=== PATIENT | male | born 1975 | race Caucasian/White ===

== ENCOUNTER 2020-11-30 02:02 | Emergency (ER) | payer SELFPAY ==
--- NOTE | 2020-11-30 02:12 | XRR_ITS ---
PROCEDURE INFORMATION: Exam: XR Abdomen Exam date and time: 11/30/2020 2:12 AM Age: 45 years old Clinical indication: Abdominal pain; Generalized; Patient HX: Abd pain with constipation. TECHNIQUE: Imaging protocol: XR of the abdomen. Views: Frontal supine view of the abdomen. 1 View. COMPARISON: CT Abdomen/Pelvis Renal [id number] 10/12/2015 1:57 PM FINDINGS: Gastrointestinal tract: There is large stool in the ascending colon and moderate stool in the descending colon. Small bowel gas pattern is unremarkable. Bones/joints: Unremarkable. XR/XR KUB [id number] IMPRESSION: Large stool in the ascending colon may be a fecal impaction.
[2020-11-30 02:13] VITALS: BP 172/102; PULSE 90; RESP 16; TEMP 36.7; O2SAT 98; BMI 27.8
--- NOTE | 2020-11-30 02:30 | ED_ITS ---
HPI - Abdominal Pain General: Chief Complaint: Abdominal Pain Stated Complaint: trouble having BM Time Seen by Provider: 11/30/20 02:12 History of Present Illness: HPI narrative: Patient is a 45-year-old male comes to the ED with constipation. Patient says that he has been having problems with bowel movements for over a year. He states that he does not have a primary care physician has not been seen by a PCP in over several years. He had a bowel movement today that was very thin and small. He has struggled with constipation for over a year and frequently has hard stools. He reports sometimes having some blood when he wipes. Patient admits to having opioid addiction and abuse is currently on methadone. He also reports some pain and difficulty urinating for over the past year as well. Denies any current urine retention. He has not taken any stool softeners or MiraLAX to help with bowel movements. Associated Symptoms: Reports constipation; Denies chills, diarrhea, dysuria, fever(s), hematochezia, hematuria, nausea and vomiting Review of Systems Const: Denies: fever(s), chills or fatigue Eyes: Denies: change in vision or eye discomfort ENMT: Denies: throat pain, odynophagia, nasal discharge or nasal congestion Card: Denies: chest pain, palpitations, edema, swelling of feet/ankles, dysp demarcus on exertion or orthopnea Resp: Denies: dyspnea, productive cough or non-productive cough GI: Reports: constipation; Denies: abdominal pain, nausea, vomiting, diarrhea or hematochezia : Reports: difficulty urinating and difficulty starting urination; Denies: flank pain, dysuria or hematuria Musc: Denies: neck pain, back pain or extremity swelling Skin/Breast: Denies: rash or new lesions Neuro: Denies: headache(s), numbness in extremities or weakness in extremities PFSH ED PFSH: Family History Father Hypertension Denies family history of Diabetes Clotting disorder Dementia Social History Smoking and tobacco status: current some day smoker cigarettes and smokeless tobacco Alcohol intake: never Physical Exam Const: COMMON NORMALS: no acute distress, patient oriented x3 and alert HENMT: COMMON NORMALS: normocephalic HEAD & SCALP: normocephalic MOUTH: Normal oral and palatal mucosa present THROAT: posterior oropharynx normal and uvula midline Eye: COMMON NORMALS: Equal, round and reactive pupils present PUPIL: Yes Equal, round and reactive pupils present Neck/C-Spine: COMMON NORMALS: supple GENERAL: Yes normal visual inspection Resp: COMMON NORMALS: normal respiratory effort, No retractions, No use of accessory muscles and clear to auscultation bilaterally AUSCULTATION: clear to auscultation bilaterally Cardio: COMMON NORMALS: regular rate, regular rhythm, S1 normal heart sound present, S2 normal heart sound present, No gallops present (Cardio), No clicks present (Cardio), No murmurs present (Cardio) and Peripheral pulses 2+ throughout RATE: regular rate RHYTHM: regular rhythm HEART SOUNDS: S1 normal heart sound present and S2 normal heart sound present PERIPHERAL PULSES: Peripheral pulses 2+ throughout GI: COMMON NORMALS: Normal to inspection, nondistended, normoactive bowel sounds present, Soft to palpation, non-tender and no masses PALPATION: Yes Soft to palpation : COMMON NORMALS: Yes no CVA tenderness BLADDER/KIDNEY EXAM: Yes no CVA tenderness Back/Pelvis: COMMON NORMALS: no CVA tenderness Extremity: COMMON NORMALS: normal to inspection Neuro: COMMON NORMALS: patient oriented x3 SENSORIUM/ORIENTATION: Yes alert Skin: GENERAL SKIN EXAM: dry skin Course Vital Signs: Vital signs: Vital Signs Temperature 98.0 F 11/30/20 02:13 Pulse Rate 90 11/30/20 02:13 Respiratory Rate 16 11/30/20 02:13 Blood Pressure 172/102 11/30/20 02:13 Pulse Oximetry 98 11/30/20 02:13 MDM - Abdominal Pain MDM Narrative: Medical decision making narrative: Patient is a 45-year-old male comes to the ED with constipation. Patient is a chronic opioid user. He also complains some difficulty urinating and trouble starting urine stream but denies any urinary retention. He has had problems with constipation for several years now. Patient does not have a primary care physician and has not seen a PCP several years. Vitals are stable and exam is benign. UA was unremarkable. KUB shows stool throughout the colon, suggestive of constipation likely induced by his chronic opioid use. I placed order with case management for patient to be referred to a PCP to get established. Return to ED precautions given. Patient was discharged home with MiraLAX and docusate prescriptions. Patient was told clinical case manager will contact him in the next several days to set up an appoint with PCP. Patient understood agree with plan. Lab Data: Attestation: I reviewed the patient's lab results. Labs: Lab Results 11/30/20 Range/Units 02:55 Urine Color Yellow (Yellow) Urine Appearance Clear (CLEAR) Urine pH 7 (5-7) Ur Specific Gravit y 1.010 (1.005-1.030) Urine Protein Neg (Negative) Urine Glucose (UA) Norm (Normal) Urine Ketones Negative (Negative) Urine Blood Neg (Negative) Urine Nitrate Negative (Negative) Urine Bilirubin Neg (Negative) Urine Urobilinogen 4 H (Negative) mg/dL Ur Leukocyte Agnes ase Negative (Negative) Urine RBC 0-4 H (0-2) /hpf Urine WBC 0-4 H (0-5) /hpf Ur Squamous Epith Cells 0-4 H (0-5) /hpf Amorphous Sediment Not Reportable Urine Bacteria Trace (NONE) /hpf Imaging Data ^: KUB: Attestation: I personally reviewed and interpreted this imaging study as follows: My impression: KUB shows a lot of stool all throughout the large intestine. Discharge Plan Discharge Patient Disposition: Home Clinical Impression: Constipation Qualifiers: Constipation type: drug induced constipation Qualified Code(s): K59.03 - Drug induced constipation Condition: Stable Prescriptions: New Miralax 17 gram/dose powder 17 g PO DAILY PRN (Reason: constipation) Qty: 238 RF: 0 Dulcolax Stool Softener (dss) 100 mg capsule 100 mg PO BID PRN (Reason: constipation) Qty: 30 RF: 0 No Action methadone 40 mg tablet,soluble 10 mg PO DAILY RF: 0 Discharge Orders: Discharge ED (Routine); Ordered 11/30/20 Ordered By: Mic Billingsley Discharge Diet: Regular Discharge Activity: Resume usual activity Patient Instructions: Constipation (ED), High Fiber Diet (ED) Activity Restrictions/Additional Instructions: Follow-up with medical provider as directed. Case management will contact you in the next several days to set up an appointment with a primary care physician. Take medications as prescribed. Drink plenty of fluids and stay hydrated and eat a high-fiber diet with fruits and vegetables. Return to the ER or your medical provider if condition worsens. Please read and understand discharge instructions. Thank you for choosing [facility] for your healthcare needs today. Please realize this is an emergency room and that we are providing you with a medical screening exam and this may not be complete and all inclusive of all the testing and or work up that you may need to determine your ailment or severity of your illness. It is very important that you follow up as instructed or that you return to the Emergency Department should you have concerns or if your condition changes or worsens in any way. Coding Level of Care Code ED Mohs Surgeon/General Dermatologist for Eduar Moreno Exam Comprehensive
[2020-11-30 03:08] LABS: Add Urine Culture? No; Bacteria Urine TRACE /hpf; Bilirubin Urine Neg (Negative); Blood Urine Neg (Negative); Glucose Urine UA Norm (Normal); Ketones Urine Negative (Negative); Leukocyte Esterase Urine Negative (Negative); Nitrate Urine Negative (Negative); Protein Urine Neg (Negative); RBC Urine 0-4 /hpf (0-2); Squamous Epithelial Cell Urine 0-4 /hpf (0-5); Urine Appearance Clear (CLEAR); Urine Color Yellow (Yellow); Urobilinogen Urine 4 mg/dL (Negative); WBC Urine 0-4 /hpf (0-5); pH Urine 7 (5-7)
[2020-11-30 03:28] VITALS: BP 148/103; PULSE 90; RESP 16; O2SAT 97
--- NOTE | 2020-12-08 13:48 | DCPLANNER ---
audio production manager had message to speak with patient about getting established with a primary care physician. audio production manager called phone number [phone], unable to speak with patient at this time.
== END 2020-11-30 03:29 | disposition home or self-care (01) ==
PROVIDERS: Emergency Provider Physician Assistant
DX: K59.03 Drug induced constipation (principal); F17.210 Nicotine dependence, cigarettes, uncomplicated; F17.220 Nicotine dependence, chewing tobacco, uncomplicated
CPT/HCPCS: 74018; 81001; 99282

== ENCOUNTER 2021-01-25 06:21 | Emergency (ER) | payer MEDICAID, SELFPAY ==
[2021-01-25 06:24] VITALS: BP 158/102; PULSE 93; RESP 18; TEMP 37.7; O2SAT 98; BMI 27.8
--- NOTE | 2021-01-25 06:34 | XRR_ITS ---
PROCEDURE INFORMATION: Exam: XR Right Ankle Exam date and time: 01/25/2021 6:34 AM Age: 45 years old Clinical indication: Other: Pain and feeling like asleep; Patient HX: Pain to entire foot/ankle x 1 week, feels like it is asleep; Additional info: Parathesia TECHNIQUE: Imaging protocol: XR Right ankle. Views: 3 or more views. COMPARISON: No relevant prior studies available. FINDINGS: Bones/joints: Normal. No fracture. Benign juxtacortical rounded calcification adjacent to the distal tibia anteriorly. Soft tissues: Normal. XR/XR ankle RT min 3V* [id number] IMPRESSION: No acute findings. Radiation Dose CTDIVOL = (mGy): DLP = (mGy-cm)
--- NOTE | 2021-01-25 06:34 | XRR_ITS ---
PROCEDURE INFORMATION: Exam: XR Right Foot Exam date and time: 01/25/2021 6:34 AM Age: 45 years old Clinical indication: Other: Pain, feeling like asleep; Patient HX: Pain to entire foot/ankle x 1 weeks, feels like asleep; Additional info: Parathesia TECHNIQUE: Imaging protocol: XR Right foot. Views: 3 or more views. COMPARISON: No relevant prior studies available. FINDINGS: Bones/joints: Normal. No fracture. Minimal degenerative change of 1st metatarsophalangeal joint. Small accessory navicular bone. Soft tissues: Normal. XR/XR foot RT min 3V* [id number] IMPRESSION: No acute findings. Radiation Dose CTDIVOL = (mGy): DLP = (mGy-cm)
--- NOTE | 2021-01-25 06:56 | W.ED.EXTPRO ---
HPI - Extremity Problem General: Chief complaint: Extremity Injury, Lower Stated complaint: R FOOT PROBLEM (ASLEEP X 1 WEEK) Time Seen by Provider: 01/25/21 06:23 History of Present Illness: HPI Narrative: 45-year-old male presents emergency room complaining of paresthesias to the right foot going on for the last week. States he has difficulty walking. Cannot recall any trauma. States he feels like it is asleep. He will get cramping and numbness. He has not had any swelling. No previous injury to the foot low back pain MD Complaint: other (Paresthesia right foot) Onset (ago): week(s) (1) Location: right and other (Foot) Quality: other (Paresthesias, pins and needle sensation) Radiation: none Relieving factors: nothing Exacerbating factors: nothing Associated symptoms: Deny arthralgias, chest pain, fever(s), myalgias, rash or short of breath Review of Systems Const: Denies: fever(s) ENMT: Denies: throat pain, ear or mastoid pain, nasal discharge or nasal congestion Card: Denies: chest pain Resp: Denies: dyspnea, productive cough or non-productive cough GI: Denies: abdominal pain, nausea, vomiting, hematemesis, coffee ground emesis, diarrhea, constipation, bloating, hematochezia or melena : Denies: flank pain, dysuria, urinary frequency or urinary urgency Skin/Breast: Denies: rash PFSH ED PFSH: Family History Father Hypertension Denies family history of Diabetes Clotting disorder Dementia Social History Smoking and tobacco status: current some day smoker cigarettes and smokeless tobacco Alcohol intake: never Physical Exam Const: COMMON NORMALS: no acute distress GENERAL APPEARANCE: cooperative and comfortable ORIENTATION/CONSCIOUSNESS: Yes awake, Yes oriented to person, Yes oriented to place and Yes oriented to time HENMT: COMMON NORMALS: normocephalic, atraumatic and hearing grossly normal bilaterally HEAD & SCALP: normocephalic and atraumatic Neck/C-Spine: COMMON NORMALS: no JVD Resp: COMMON NORMALS: normal respiratory effort, No retractions, No use of accessory muscles and clear to auscultation bilaterally AUSCULTATION: clear to auscultation bilaterally Cardio: COMMON NORMALS: no JVD, regular rate, regular rhythm and No murmurs present (Cardio) RATE: regular rate RHYTHM: regular rhythm Extremity: COMMON NORMALS: normal to inspection, capillary refill normal, no clubbing, cyanosis or edema, no calf tenderness and no pedal edema Neuro: SENSORIUM/ORIENTATION: Yes oriented to person, Yes oriented to place and Yes oriented to time OTHER: Babinski in the right foot downgoing. Patellar tendon +2/4, 1/4 Achilles tendon on the right. Neurovascular is intact although patient reports somewhat diminished sensation right compared to left. Skin: COMMON NORMALS: no rashes or lesions noted GENERAL SKIN EXAM: no rashes or lesions noted Course Vital Signs: Vital signs: Vital Signs Temperature 99.8 F H 01/25/21 09:55 Pulse Rate 93 01/25/21 06:24 Respiratory Rate 18 01/25/21 09:55 Blood Pressure 158/102 01/25/21 06:24 Pulse Oximetry 98 01/25/21 09:55 MDM - Extremity (Nontraumatic) MDM Narrative: Medical decision making narrative: Patient relates that he has been laying in bed last week because of his foot. He denies any chest pain or shortness of breath on exam he did not have a positive Homans' sign there is no swelling in the calf. He has sensation to the foot although he reports that is being somewhat altered deep tendon reflex patellar tendon are 204 difficult to elicit at the Achilles tendon 1 of 4 there. He has palpable pulses and no cyanosis of the foot. Reviewed laboratory findings with the patient we will discharge him home have him follow-up with his primary care doctor for further evaluation possible referral to neurology. Lab Data: Labs: Lab Results 01/25/21 01/25/21 07:43 07:43 WBC 8.8 10^3/uL 10^3/ uL (4.0-10.0) RBC 5.68 10^6/uL H 10 ^6/uL (4.1-5.3) Hgb 16.2 g/dL g/dL (11.7-16.6) Hct 49.0 % % (42.0-52.0) MCV 86.3 fl fl (80-94) MCH 28.5 pg pg (28.0-34.0) MCHC 33.1 g/dL g/dL (30.0-36.0) RDW 13.1 % % (12.1-15.1) Plt Count 251 10^3/cmm 10^3 /cmm (130-400) MPV 8.8 fL fL (7.4-10.4) Neut % (Auto) 69.6 % % Lymph % (Auto) 22.3 % % [place] % (Auto) 7.5 % % Eos % (Auto) 0.1 % % Baso % (Auto) 0.2 % % Neut # (Auto) 6.15 10^3/uL 10^3 /uL (1.8-7.7) Lymph # (Auto) 2.0 10^3/uL 10^3/ uL (0.8-4.8) [place] # (Auto) 0.7 10^3/uL 10^3/ uL (0.2-0.9) Eos # (Auto) 0.0 10^3/uL 10^3/ uL (0.0-0.8) Baso # (Auto) 0.0 10^3/uL 10^3/ uL (0.0-0.1) Nucleated RBC % (a uto) 0 % % Nucleated RBCs # 0.0 /100WBC /100W BC Sodium 137 mmol/L mmol/L (136-145) Potassium 4.6 mmol/L mmol/L (3.5-5.1) Chloride 102 mmol/L mmol/L (98-107) Carbon Dioxide 28 mmol/L mmol/L (22-29) Anion Gap 11.6 (5-19) BUN 11 mg/dL mg/dL (6-20) Creatinine 0.7 mg/dL mg/dL (0.7-1.2) GFR Calculation 122.0 mL/min mL/m in (90-130) Glucose 116 mg/dL H mg/dL (65-115) Calculated Osmolal ity 284 mOsm/kg L mOs m/kg (285-295) Calcium 9.5 mg/dL mg/dL (8.5-10.5) Creatine Kinase 530 U/L H* U/L (39-308) Discharge Plan Discharge Patient Disposition: Home Clinical Impression: Paresthesia of foot Condition: Stable Prescriptions: No Action methadone 40 mg tablet,soluble 10 mg PO DAILY RF: 0 Miralax 17 gram/dose powder 17 g PO DAILY PRN (Reason: constipation) Qty: 238 RF: 0 Dulcolax Stool Softener (dss) 100 mg capsule 100 mg PO BID PRN (Reason: constipation) Qty: 30 RF: 0 Discharge Orders: Discharge ED (Routine); Ordered 01/25/21 Ordered By: Ron Craig Discharge Diet: Advance as tolerated Discharge Activity: Increase activity as tolerated Patient Instructions: Opioid Safety Activity Restrictions/Additional Instructions: Follow-up with primary care. Case management will assist you in establishing with a primary care physician. Coding Level of Care Code ED Switch Operators Supervisor for Chg Fwd Exam Detailed
[2021-01-25 08:02] LABS: Basophils % 0.2 %; Eosinophils % 0.1 %; Hemoglobin 16.2 g/dL (11.7-16.6); Lymphocytes % 22.3 %; Mean Corpuscular HGB Conc 33.1 g/dL (30.0-36.0); Mean Corpuscular Hemoglobin 28.5 pg (28.0-34.0); Mean Corpuscular Volume 86.3 fl (80-94); Mean Platelet Volume 8.8 fL (7.4-10.4); Monocytes # 0.7 10^3/uL (0.2-0.9); Monocytes % 7.5 %; Neutrophils # 6.15 10^3/uL (1.8-7.7); Neutrophils % 69.6 %; Nucleated Red Blood Cells % 0 %; Platelet Count 251 10^3/cmm (130-400); Red Blood Count 5.68 10^6/uL (4.1-5.3); Red Cell Distribution Width 13.1 % (12.1-15.1); White Blood Count 8.8 10^3/uL (4.0-10.0)
[2021-01-25 08:20] LABS: Anion Gap 11.6 (5-19); Blood Urea Nitrogen 11 mg/dL (6-20); Calcium 9.5 mg/dL (8.5-10.5); Carbon Dioxide 28 mmol/L (22-29); Chloride 102 mmol/L (98-107); Glucose 116 mg/dL (65-115); Osmolality Calculated 284 mOsm/kg (285-295); Potassium 4.6 mmol/L (3.5-5.1); Sodium 137 mmol/L (136-145)
[2021-01-25 08:21] LABS: Creatine Phosphokinase 530 U/L (39-308)
[2021-01-25 08:35] LABS: Slide Review Slide Review Perform
[2021-01-25 09:55] VITALS: RESP 18; TEMP 37.7; O2SAT 98
--- NOTE | 2021-01-26 14:01 | DCPLANNER ---
corporate development manager had message to speak with patient about getting established with a primary care physician. corporate development manager called- [phone] phone number a voicemail was left for patient to return case sealer phone call.
== END 2021-01-25 09:55 | disposition home or self-care (01) ==
PROVIDERS: Emergency Provider Family Medicine
DX: R20.2 Paresthesia of skin (principal); F17.210 Nicotine dependence, cigarettes, uncomplicated; F17.220 Nicotine dependence, chewing tobacco, uncomplicated
CPT/HCPCS: 73610; 73630; 80048; 82550; 85025; 99282